=== PATIENT | female | born 1960 | race Caucasian/White ===

== ENCOUNTER → 2017-03-25 | Outpatient (CLI) | payer MEDICAID ==
[~2017-03-25] MED LIST: ADDE15TA PO; IMIT100T PO; LEVO50TA4 PO; LEXA20TA PO; TOPI100T8 PO; WELLTAB39 PO
--- NOTE | 2017-03-26 08:49 | RSPPFT ---
DATE OF PROCEDURE: 03/25/17 COMMENTS: Spirometry shows FVC of 3.8 at 107% of predicted, FEV1 of 3.1 at 108%, FEV1/FVC ratio is normal. Flow is normal at FEF 25, FEF 50, FEF 75 and FEF 25-75. Flow volume loop indicates a normal pattern. IMPRESSION: 1. Normal spirometry. 2. Post-bronchodilator study was not done.
== END ==
LOC: HRSP 08:48
PROVIDERS: ATTEND Family Medicine
DX: R06.02 Shortness of breath (principal)
CPT/HCPCS: 94010